=== PATIENT | male | born 1980 | race African-American/Black ===

== ENCOUNTER 2022-02-06 04:50 | Emergency (ER) | payer OTHER ==
[~2022-02-06] VITALS: Ht 175.3 cm; Wt 90.7 kg
[2022-02-06 04:50] VITALS: BP 139/90
--- NOTE | 2022-02-06 04:50 | NUR ---
TO BED AMBULATORY, BIBA WITH C/O CHEST PAIN.
[2022-02-06] MEDS ORDERED: ASPIRIN 325 MG TAB PO ONE (05:05)
--- NOTE | 2022-02-06 05:13 | NUR ---
41 yo/m biba from a store w c/o crushing chest pain 8/ constant non-rad x5 hours while doing pilates and meth. Pt denies any fevers/chills, n/v/d, or sob. pt placed in gown, connected to monitor. Pt smiling, breathing even and unlabored. will continue to monitor. pmh: htn allergies: denies
--- NOTE | 2022-02-06 05:28 | NUR ---
XRAY AT BEDSIDE.
[2022-02-06] MEDS ORDERED: NITROGLYCERIN 2% 1 GM PKT TP ONE (06:10)
[2022-02-06] MEDS ORDERED: ACETAMINOPHEN EXTRA STRENGTH 500 MG TAB PO ONE (06:10)
--- NOTE | 2022-02-06 06:11 | NUR ---
OSIEL FROM LAB MADE AWARE WE WERE NOT ABLE TO GET TO COLLECT BLOOD, PT IS A HARD STICK. OSIEL STATED SHE WILL COME OVER WHEN SHE IS DONE WITH HER MORNING STUFF.
[2022-02-06 06:30] LABS: BASOPHILS # (AUTO) 0.1 K/uL (0.00-0.22); BASOPHILS % (AUTO) 1.2 % (0.0-2.0); EOSINOPHILS % (AUTO) 0.2 % (0.0-4.0); HEMATOCRIT 37.9 % (36-52); HEMOGLOBIN 12.7 g/dL (12.0-18.0); LYMPHOCYTES # (AUTO) 2.7 K/uL (2.0-11.5); LYMPHOCYTES % (AUTO) 51.2 % (20.5-51.1); MEAN CORPUSCULAR HEMOGLOBIN 30 pg (27-31); MEAN CORPUSCULAR HGB CONC 34 g/dL (33-37); MEAN CORPUSCULAR VOLUME 89.9 fL (80-94); MONOCYTES # (AUTO) 0.5 K/uL (0.8-1.0); MONOCYTES % (AUTO) 9.9 % (1.7-9.3); NEUTROPHILS % (AUTO) 37.5 % (42.2-75.2); PLATELET COUNT (AUTO) 278 K/uL (140-450); RED BLOOD CELL COUNT(AUTO) 4.22 MIL/uL (4.20-6.10); RED CELL DISTRIBUTION WIDTH 13.9 % (11.6-13.7); WHITE BLOOD COUNT (AUTO) 5.3 K/uL (4.8-10.8)
[2022-02-06 06:47] LABS: PROTHROMBIN TIME 10.8 secs (10.8-13.4)
[2022-02-06 06:57] LABS: ALBUMIN 3.8 g/dL (3.4-5.0); ANION GAP 11.7 (8-16); CARBON DIOXIDE 26.4 mmol/L (21-32); POTASSIUM 3.1 mmol/L (3.5-5.1); TOTAL BILIRUBIN 0.7 mg/dL (0.0-1.0)
--- NOTE | 2022-02-06 07:26 | NUR ---
PATIENT ELOPED FROM FACILITY. DISCHARGE INSTRUCTIONS NOT GIVEN TO PATIENT. NOTIFIED. IV NOT REMOVED, CHARGE NURSE VICTOR HUGO MADE AWARE.
--- NOTE | 2022-02-06 07:32 | NUR ---
CALLED [facility] TO REPORT PT LEFT WITH IV.
== END 2022-02-06 07:32 | disposition left against medical advice (07) ==
LOC: MED 04:50
DX: R07.2 Precordial pain (principal); R06.02 Shortness of breath; I10 Essential (primary) hypertension
CPT/HCPCS: 36415; 71045; 80053; 83880; 84484; 85025; 85610; 85730; 93005; 99285; Q0092